=== PATIENT | male | born 1945 | race Caucasian/White ===

== ENCOUNTER 2022-01-29 20:28 | Emergency (ER) | payer MEDICARE, SELFPAY ==
--- NOTE | 2022-01-29 20:33 | ED.CHESTPAIN ---
HPI - Chest Pain General Chief Complaint: Chest Pain Stated Complaint: AFib-RVR Time Seen by Provider: 01/29/22 20:33 History of Present Illness HPI narrative: 76-year-old male nonsmoker with history of atrial fibrillation (not anticoagulated), hypertension presents by EMS for evaluation of rapid AFib. He states that he is had atrial fibrillation for many years but is not anticoagulated because he had an ablation 7 years ago and had gone into AFib until about 1 week ago when he started having palpitations when he was in Left Hand. He was not cardioverted and not started on anticoagulation then but did have an increase in his metoprolol. He states that he has been in AFib for about the past week but for the past few days he is had increasing shortness of breath and cough. He denies any headache, blurred vision or trouble with speech. He denies sore throat but has had some runny nose and nasal congestion. He is had some mild nausea but denies any vomiting. On arrival EMS found him with heart rate in the 140s and he was given diltiazem 10 mg and heart rate slowed to the 90s to low 100s with improved symptoms. He lives in [place] and is visiting locally to help some friends out, he plans to go home in the next week or 2 Related Data Home Medications Medication Instructions Recorded Confirmed amlodipine PO 10/30/21 10/30/21 furosemide PO 10/30/21 10/30/21 lisinopril PO 10/30/21 10/30/21 metoprolol succinate PO 10/30/21 10/30/21 Previous Rx's Medication Instructions Recorded benzonatate 100 mg capsule 100 mg PO BID PRN cough #20 caps 10/30/21 apixaban 5 mg tablet (Eliquis) 5 mg PO BID #60 tabs 01/29/22 metoprolol succinate 25 mg 25 mg PO DAILY #30 tabs 01/29/22 tablet,extended release 24 hr oseltamivir 75 mg capsule (Tamiflu) 75 mg PO BID 5 days #10 caps 01/29/22 Allergies Allergy/AdvReac Type Severity Reaction Status Date / Time No Known Drug Allergies Allergy Unverified 10/30/21 11:33 Review of Systems Review of Systems Narrative: GENERAL: See HPI HEENT: Denies sinus pain, ear pain, sore throat, difficulty swallowing, dizziness. RESPIRATORY: See HPI CARDIOVASCULAR: See HPI GASTROINTESTINAL: See HPI : Denies dysuria, frequency, incontinence, hematuria, urinary retention. MUSCULOSKELETAL: denies weakness, joint pain, or bony pain SKIN: Denies rash, skin lesions, or other NEUROLOGIC: Denies weakness, headache, numbness, change in speech, confusion, seizures, incoordination. PSYCHIATRIC: No concerning psychosocial issues. 12 point review of systems is negative except for those stated above Patient History Social History Smoking Status: Never smoker Smoking Status: Never smoker Exam Narrative Exam Narrative: GENERAL: [76] year old patient appears stated age. Well-developed patient, in mild distress. HEAD: Atraumatic. Normocephalic. EYES: Pupils equal round and reactive. Extraocular motions intact. No scleral icterus. No injection or drainage. ENT: Nose without bleeding, purulent drainage. Throat without erythema, tonsillar hypertrophy or exudate. Airway patent. NECK: Trachea midline. Non tender CARDIOVASCULAR: irregularly irregular. No murmurs, clicks, rubs, or gallops RESPIRATORY: Clear to auscultation. Breath sounds equal bilaterally. No wheezes, rales, or rhonchi. GASTROINTESTINAL: Abdomen soft, non-tender, nondistended. EXTREMITIES: No edema or joint tenderness. BACK: Nontender without deformity or crepitance. No flank tenderness. NEURO: AOx3. SKIN: No rash or erythema of visible areas Initial Vital Signs Initial Vital Signs: Vital Signs Temperature 98.2 F 01/29/22 20:36 Pulse Rate 94 H 01/29/22 20:36 Respiratory Rate 16 01/29/22 20:36 Blood Pressure 138/77 01/29/22 20:36 Pulse Oximetry 95 01/29/22 20:36 Oxygen Delivery Method 01/29/22 20:36 Course Orders Ordered: ED Orders 01/29/22 20:30 Complete Blood Count AUTO DIFF Stat Comprehensive Metabolic Panel Stat Lipase Stat NT-proBNP (BNP-Adult 18+) Stat Troponin & CK Cardiac Panel Stat 01/29/22 20:35 XR chest 1V Stat EKG-12 Lead Stat 01/29/22 20:46 Covid-19 + FLU A/B + RSV - PCR Stat Discontinued Medications Acetaminophen (Acetaminophen 325 Mg Tablet) 975 mg PO NOW ONE Stop: 01/29/22 21:48 Last Admin: 01/29/22 21:49 Dose: 975 mg Documented By: RAKESH Sodium Chloride (Normal Saline 0.9%) 1,000 mls @ 150 mls/hr IV CONT MIKA Last Infusion: 01/29/22 23:14 Dose: 0 mls/hr Documented By: Admin: 01/29/22 20:42 Dose: 150 mls/hr Documented By: RAKESH Metoprolol Succinate (Metoprolol Er 50 Mg Tablet) 50 mg PO NOW ONE Stop: 01/29/22 23:08 Last Admin: 01/29/22 23:13 Dose: 50 mg Documented By: RAKESH Consultations Consultation #1: Discussed with on-call straightening machine feeder (Linda) and we sure the opinion that patient is not candidate for cardioversion but should be on anticoagulation. Furthermore, she recommends adding an additional 25 mg of metoprolol and encouraging close follow-up. Vital Signs Vital signs: Vital Signs - 8 hr 01/29/22 20:36 01/29/22 21:49 01/29/22 20:49 Temperature 98.2 F 100.4 F H Pulse Rate 94 H Respiratory Rate 16 Blood Pressure 138/77 136/77 Pulse Oximetry 95 Oxygen Delivery Method Room Air 01/29/22 21:46 01/29/22 23:13 01/29/22 23:31 Temperature 100.4 F H 98.8 F Pulse Rate 103 H Respiratory Rate Blood Pressure 122/77 Pulse Oximetry Oxygen Delivery Method 01/29/22 23:31 Temperature Pulse Rate 703 H Respiratory Rate 16 Blood Pressure 122/77 Pulse Oximetry 97 Oxygen Delivery Method Room Air MDM - Chest Pain Lab Data Result diagrams: 01/29/22 20:30 01/29/22 20:30 Labs: Lab Results 01/29/22 01/29/22 01/29/22 Range/Units 20:30 20:30 20:30 WBC 11.7 H (4.5-11.0) X10^3/uL RBC 4.66 (4.5-5.9) X10^6/uL Hgb 14.7 (13.5-17.5) g/dL Hct 43.3 (41-53) % MCV 93.0 (80-100) fL MCH 31.5 (26-34) PG MCHC 33.9 (30-36) % RDW 13.6 (11.6-14.8) % Plt Count 231 (150-400) X10^3/uL Neut % (Auto) 89.9 H (50-75) % Lymph % (Auto) 2.1 L (25-40) % Tompkins % (Auto) 7.8 (3-14) % Eos % (Auto) 0.0 L (2-4) % Baso % (Auto) 0.2 (0-2) % Neut # (Auto) 65885 H (8051-5238) /uL Lymph # (Auto) 300 L (6425-8081) /uL Tompkins # (Auto) 900 (0-900) /uL Eos # (Auto) 0 (0-450) /uL Baso # (Auto) 0 (0-100) /uL Sodium 137 (137-145) mmol/L Potassium 4.0 (3.4-5.1) mmol/L Chloride 98 (98-107) mmol/L Carbon Dioxide 24 (22-32) mmol/L BUN 12 (9-20) mg/dL Creatinine 0.99 (0.66-1.25) mg/dL Estimated GFR > 60 (>60) mL/min BUN/Creatinine Ratio 12.1 (6-22) Glucose 169 H (80-110) mg/dL Calcium 9.1 (8.4-10.2) mg/dL Total Bilirubin 1.0 (0.2-1.3) mg/dL AST 32 (17-59) IU/L ALT 32 (<50) IU/L Alkaline Phosphatase 81 (38-126) U/L Total Creatine Kinase 95 (55-170) U/L CK-MB (CK-2) TNP CK-MB (CK-2) Rel Index TNP Troponin I 0.012 (0.01-0.034) ng/mL NT-Pro-B Natriuret Pep 1390 H (<450) pg/mL Total Protein 8.8 H (6.3-8.2) g/dL Albumin 4.7 (3.5-5.0) g/dL Globulin 4.1 (1.7-4.1) g/dL Albumin/Globulin Ratio 1.1 (1.0-2.8) Lipase 32 (23-300) U/L SARS-CoV-2 (PCR) (Negative) Influenza A (RT-PCR) (NEGATIVE) Influenza B (RT-PCR) (NEGATIVE) RSV (PCR) (Negative) 01/29/22 Range/Units 20:46 WBC (4.5-11.0) X10^3/uL RBC (4.5-5.9) X10^6/uL Hgb (13.5-17.5) g/dL Hct (41-53) % MCV (80-100) fL MCH (26-34) PG MCHC (30-36) % RDW (11.6-14.8) % Plt Count (150-400) X10^3/uL Neut % (Auto) (50-75) % Lymph % (Auto) (25-40) % Tompkins % (Auto) (3-14) % Eos % (Auto) (2-4) % Baso % (Auto) (0-2) % Neut # (Auto) (6010-2995) /uL Lymph # (Auto) (4811-4334) /uL Tompkins # (Auto) (0-900) /uL Eos # (Auto) (0-450) /uL Baso # (Auto) (0-100) /uL Sodium (137-145) mmol/L Potassium (3.4-5.1) mmol/L Chloride (98-107) mmol/L Carbon Dioxide (22-32) mmol/L BUN (9-20) mg/dL Creatinine (0.66-1.25) mg/dL Estimated GFR (>60) mL/min BUN/Creatinine Ratio (6-22) Glucose (80-110) mg/dL Calcium (8.4-10.2) mg/dL Total Bilirubin (0.2-1.3) mg/dL AST (17-59) IU/L ALT (<50) IU/L Alkaline Phosphatase (38-126) U/L Total Creatine Kinase (55-170) U/L CK-MB (CK-2) CK-MB (CK-2) Rel Index Troponin I (0.01-0.034) ng/mL NT-Pro-B Natriuret Pep (<450) pg/mL Total Protein (6.3-8.2) g/dL Albumin (3.5-5.0) g/dL Globulin (1.7-4.1) g/dL Albumin/Globulin Ratio (1.0-2.8) Lipase (23-300) U/L SARS-CoV-2 (PCR) Negative (Negative) Influenza A (RT-PCR) Flu a positive H (NEGATIVE) Influenza B (RT-PCR) Flu b negative (NEGATIVE) RSV (PCR) Negative (Negative) Imaging Data Chest x-ray: Radiologist's Impression: Close Chest X-Ray (Signed) Fidel Mason - 01/29/22 Launch?[address] [address] XRay Report Signed Patient: Luis Oden MR#: [id number] : 1945 Acct:[id number] Age/Sex: 76 / M Date of Service: 01/29/22 Loc: ED Accession Number: [id number] ?? Procedure: XR chest 1V Ordering Provider: Steve Ramos D.O. PROCEDURE:? XR CHEST 1V ? INDICATIONS:? chest pain ? TECHNIQUE:? One view of the chest was acquired.? ? COMPARISON:? None. ? FINDINGS:? ? Surgical changes and devices:? None.? ? Lungs and pleura:? Lungs are clear.? No pleural effusions or pneumothorax.? ? Mediastinum:? Mediastinal contours appear normal.? Heart size is normal.? ? Bones and chest wall:? No suspicious bony lesions.? Overlying soft tissues appear unremarkable.? ? IMPRESSION:? ? 1.? No acute cardiopulmonary disease. ? ? Dictated by: Fidel Mason M.D. on 01/29/2022 at 21:51 ? ? Approved by: Fidel Mason M.D. on 01/29/2022 at 21:52? [facility] Narrative Medical decision making narrative: Patient with reassuring history and physical exam presents with cough, shortness of breath and EMS noted rapid AFib. He is not anticoagulated and not an appropriate candidate for cardioversion given symptoms for the past 7 days. He is rate controlled and given prescription for Eliquis and additional metoprolol. He is given extensive return precautions and questions have been answered to his apparent satisfaction Discharge Plan Departure Patient Disposition: Home Clinical Impression: Atrial fibrillation, Influenza A Instructions: DI for Atrial Fibrillation, DI for Influenza -- Adult Activity Restrictions/Additional Instructions: *You have been diagnosed with [rapid atrial fibrillation and influenza a] *What to do: *Please continue to take your regular medications as directed. [ ] New medication prescriptions sent to your pharmacy: [ ] [x ] New medication written as a paper prescription [ ] No new medications given *Please follow up with your primary care provider in 2-3 days, call for an appointment. Let them know you were seen in the Emergency Department and that we ask that you be seen in follow up. We will electronically transmit a record of today's note if your PCP is in our system *Return to Emergency Department if you should have any new, worsening or concerning symptoms, such as [fever greater than 101 F, shaking chills, worsening pain, persistent vomiting or other bothersome symptoms] Prescriptions: New Eliquis 5 mg tablet 5 mg PO BID Qty: 60 0RF oseltamivir [Tamiflu] 75 mg capsule 75 mg PO BID 5 Days Qty: 10 0RF metoprolol succinate 25 mg tablet extended release 24 hr 25 mg PO DAILY Qty: 30 0RF No Action metoprolol succinate PO amlodipine PO lisinopril PO furosemide PO benzonatate 100 mg capsule 100 mg PO BID PRN (Reason: cough) Qty: 20 0RF Referrals: Miscellaneous,Doctor, MD [Primary Care Provider] - Visit Report Forms: Patient Portal/API
--- NOTE | 2022-01-29 20:35 | DI.RAD.S_ITS ---
PROCEDURE: XR CHEST 1V INDICATIONS: chest pain TECHNIQUE: One view of the chest was acquired. COMPARISON: None. FINDINGS: Surgical changes and devices: None. Lungs and pleura: Lungs are clear. No pleural effusions or pneumothorax. Mediastinum: Mediastinal contours appear normal. Heart size is normal. Bones and chest wall: No suspicious bony lesions. Overlying soft tissues appear unremarkable. IMPRESSION: 1. No acute cardiopulmonary disease. Dictated by: Fidel Mason M.D. on 01/29/2022 at 21:51 Approved by: Fidel Mason M.D. on 01/29/2022 at 21:52
[2022-01-29 20:36] VITALS: BP 138/77; PULSE 94; RESP 16; TEMP 36.8; O2SAT 95
[2022-01-29 20:41] LABS: Add Manual Diff / Slide Review NO; Basophils Absolute Auto 0 /uL (0-100); Basophils Percent Auto 0.2 % (0-2); Eosinophils Absolute Auto 0 /uL (0-450); Hematocrit 43.3 % (41-53); Hemoglobin 14.7 g/dL (13.5-17.5); Lymphocytes Absolute Auto 300 /uL (1100-4500); Lymphocytes Percent Auto 2.1 % (25-40); Mean Corpuscular HGB Conc 33.9 % (30-36); Mean Corpuscular Hemoglobin 31.5 PG (26-34); Monocytes Absolute Auto 900 /uL (0-900); Monocytes Percent Auto 7.8 % (3-14); Neutrophils Absolute Auto 10500 /uL (1500-7000); Neutrophils Percent Auto 89.9 % (50-75); Platelet Count 231 X10^3/uL (150-400); Red Blood Cell Count 4.66 X10^6/uL (4.5-5.9); Red Cell Distribution Width 13.6 % (11.6-14.8); White Blood Cell Count 11.7 X10^3/uL (4.5-11.0)
[2022-01-29] MEDS: SODIUM CHLORIDE 0.9% 1,000 ML 150 ML IV (20:42)
[2022-01-29 20:49] VITALS: BP 136/77
[2022-01-29 20:52] LABS: Alanine Aminotransferase 32 IU/L (<50); Albumin 4.7 g/dL (3.5-5.0); Albumin Globulin Ratio 1.1 (1.0-2.8); Alkaline Phosphatase 81 U/L (38-126); Aspartate Aminotransferase 32 IU/L (17-59); BUN Creatinine Ratio 12.1 (6-22); Blood Urea Nitrogen 12 mg/dL (9-20); Calcium 9.1 mg/dL (8.4-10.2); Carbon Dioxide 24 mmol/L (22-32); Chloride 98 mmol/L (98-107); Creatine Kinase 95 U/L (55-170); Estimated Glomerular Filt Rate > 60 mL/min (>60); Globulin 4.1 g/dL (1.7-4.1); Glucose 169 mg/dL (80-110); HEMOLYSIS 22 (0-50); Lipase 32 U/L (23-300); Sodium 137 mmol/L (137-145); Total Protein 8.8 g/dL (6.3-8.2)
[2022-01-29 21:01] LABS: NT-proBNP (BNP-Adult 18+) 1390 pg/mL (<450)
[2022-01-29 21:05] LABS: Troponin I 0.012 ng/mL (0.01-0.034)
[2022-01-29 21:29] LABS: Influenza A - CEPHEID Flu A POSITIVE (NEGATIVE); Influenza B - CEPHEID Flu B NEGATIVE (NEGATIVE); Respiratory Syncytial Virus Negative (Negative)
[2022-01-29 21:36] LABS: COVID-19 CEPHEID 4-PLEX PCR Negative (Negative)
[2022-01-29 21:46] VITALS: TEMP 38
[2022-01-29 21:49] VITALS: TEMP 38
[2022-01-29] MEDS: ACETAMINOPHEN 325 MG TABLET 975 MG PO (21:49)
[2022-01-29 23:13] VITALS: BP 122/77; PULSE 103
[2022-01-29] MEDS: METOPROLOL ER 50 MG TABLET PO (23:13)
[2022-01-29 23:31] VITALS: BP 122/77; PULSE 703; RESP 16; TEMP 37.1; O2SAT 97
== END 2022-01-29 23:32 | disposition home or self-care (01) ==
PROVIDERS: Emergency Provider Emergency Medicine
DX: I48.20 Chronic atrial fibrillation, unspecified (principal); J10.1 Influenza due to other identified influenza virus with other respiratory manifestations; Z79.01 Long term (current) use of anticoagulants; I10 Essential (primary) hypertension; R07.9 Chest pain, unspecified
CPT/HCPCS: 0241U; 36415; 71045; 80053; 82550; 83690; 83880; 84484; 85025; 93005; 96360; 96361; 99284